=== PATIENT | female | born 1935 | race Caucasian/White ===

== ENCOUNTER → 2016-08-13 | Outpatient (CLI) | payer MEDICARE, OTHER ==
[~2016-08-13] MED LIST: ASPI-611 PO; ATOR40TA29 PO; LISI-14 PO; MELO-32 PO; RALO60TA9 PO
== END ==
LOC: WC.BC 08:22
DX: Z12.31 Encounter for screening mammogram for malignant neoplasm of breast (principal)
CPT/HCPCS: 77063; G0202